=== PATIENT | female | born 1940 ===

== ENCOUNTER → 2017-10-02 | Outpatient (CLI) | payer BC, OTHER ==
--- NOTE | 2017-10-02 11:37 | CPEKG ---
Heart Rate: 81 RR Interval: 741 P-R Interval: 188 QRSD Interval: 76 QT Interval: 392 QTC Interval: 455 P [place]: 70 QRS [place]: -12 T Wave [place]: -15 EKG Severity - ABNORMAL ECG - EKG Impression: SINUS RHYTHM EKG Impression: LEFT ATRIAL ABNORMALITY EKG Impression: PROBABLE INFERIOR INFARCT, AGE INDETERMINATE Electronically Signed By: Jarrett Cardenas 02-Oct-2017 13:21:24
== END ==
LOC: FCP 11:18
PROVIDERS: ATTEND Internal Medicine
DX: R55 Syncope and collapse (principal); R93.1 Abnormal findings on diagnostic imaging of heart and coronary circulation